=== PATIENT | male | born 1955 | race Caucasian/White ===

== ENCOUNTER 2022-05-15 11:57 | Day surgery (SDC) | payer MEDICARE, OTHER, SELFPAY ==
--- NOTE | 2022-05-14 08:34 | HO.ANESPROP2 ---
Documented by User: Liliana Adams NP 05/14/22 08:36 HPI - Anesthesia Eval Consult details Narrative: 67yo M for Colonoscopy [facility] Past Medical History Medical History (Updated 05/09/22 @ 09:30 by Nancy Nichole, JIA) Elevated cholesterol Elevated IOP GERD (gastroesophageal reflux disease) HTN (hypertension) Surgical History Surgical History (Updated 05/09/22 @ 09:31 by Nancy Nichole, JIA) History of shoulder surgery Hx of colonoscopy Hx of neck surgery Social History Social History Patient Tobacco Use Status: Never used Tobacco Are you DNR?: No Advance Directives: No Advance Directives Information Provided: Yes Meds Allergies Allergy/AdvReac Type Severity Reaction Status Date / Time Penicillins Allergy Unknown Verified 05/09/22 09:25 Home Medications Medication Instructions Recorded Confirmed Last Taken Type amlodipine 10 mg tablet 10 mg PO DAILY 05/09/22 05/09/22 Unknown History bimatoprost 0.01 % eye drops drp 05/09/22 Unknown History (Lumigan) brimonidine 0.1 % eye drops drp 05/09/22 Unknown History (Alphagan P) doxycycline hyclate 100 mg tablet mg 05/09/22 05/09/22 Unknown History ezetimibe 10 mg tablet 10 mg PO DAILY 05/09/22 05/09/22 Unknown History ibuprofen 200 mg tablet (Advil) mg 05/09/22 05/08/22 History irbesartan 300 mg tablet 300 mg PO DAILY 05/09/22 05/09/22 Unknown History omeprazole 20 mg tablet,delayed 20 mg PO DAILY 05/09/22 05/09/22 Unknown History release Exam Exam Date and Time: May 14, 2022 0834 Height,Weight and Vital Signs: Height 6 ft 2 in Weight 106.141 kg Assessment and Plan Assessment Anesthesia Assessment: Chart Reviewed Documented by User: Sadi Stephen MD 05/15/22 19:01 [facility] Past Medical History Medical History (Updated 05/09/22 @ 09:30 by Nancy Nichole RN) Elevated cholesterol Elevated IOP GERD (gastroesophageal reflux disease) HTN (hypertension) Functional capacity: independent ambulation Family History Family history of problems with anesthesia: No Surgical History Surgical History (Updated 05/09/22 @ 09:31 by Nancy Nichole RN) History of shoulder surgery Hx of colonoscopy Hx of neck surgery History of Problems with Anesthesia: No Social History Social History Patient Tobacco Use Status: Never used Tobacco Are you DNR?: No Advance Directives: No Advance Directives Information Provided: Yes Meds Allergies Allergy/AdvReac Type Severity Reaction Status Date / Time Penicillins Allergy Unknown Verified 05/09/22 09:25 Home Medications Medication Instructions Recorded Confirmed Last Taken Type amlodipine 10 mg tablet 10 mg PO DAILY 05/09/22 05/09/22 Unknown History bimatoprost 0.01 % eye drops drp 05/09/22 Unknown History (Lumigan) brimonidine 0.1 % eye drops drp 05/09/22 Unknown History (Alphagan P) doxycycline hyclate 100 mg tablet mg 05/09/22 05/09/22 Unknown History ezetimibe 10 mg tablet 10 mg PO DAILY 05/09/22 05/09/22 Unknown History ibuprofen 200 mg tablet (Advil) mg 05/09/22 05/08/22 History irbesartan 300 mg tablet 300 mg PO DAILY 05/09/22 05/09/22 Unknown History omeprazole 20 mg tablet,delayed 20 mg PO DAILY 05/09/22 05/09/22 Unknown History release Exam Airway Mallampati Class: IV Neck ROM: Full Loose/Missing/Broken Teeth: Yes Heart: S1,S2 Lungs: b/l breath sounds Assessment and Plan Assessment Anesthesia Assessment: Anesthesia Plan Discussed Final Anesthetic Review Family History of Problems with Anesthesia: No History of Problems with Anesthesia: No NPO: Yes ASA Class: II Final Preanesthetic Review: Meds/Allgs Chart Reviewed, Consent Obtained/Reviewed and Anes Risks/Benef Reviewed Patient Risk: Intermediate Procedure Risk: Intermediate Anesthetic Plan Anesthetic Plan: MAC: Disposition: Standard PACU
[2022-05-15 12:06] VITALS: BP 145/102; PULSE 88; RESP 18; TEMP 36.6; O2SAT 97
--- NOTE | 2022-05-15 13:06 | MHC.SHP ---
Pre-Procedural Eval Section A Date of Service: 05/15/22 The patient is an INPATIENT: No Changes since office visit: No Cold of Flu in the past 2 weeks, No New Medical Problems, No Changes in Medication and No Patient answered all questions The History & Physical has been completed within 30 days and I have reviewed it.: Yes Section B Chief Complaint: screening Allergies: Allergies Allergy/AdvReac Type Severity Reaction Status Date / Time Penicillins Allergy Unknown Verified 05/09/22 09:25 Plan I have reviewed the history and physical and performed a pertinent physical examination on my patient. No changes have occurred unless specified.
--- NOTE | 2022-05-15 13:45 | PM.OP ---
Brief Operative Note Date of Service: 05/15/22 Pre-op diagnosis: screening Post-op diagnosis: same Procedure: colonoscopy Surgeon: Arun Bradley Anesthesia: MAC Was an Learning And Development Specialist used for this Procedure?: No Estimated blood loss (mL): 0 Pathology: none sent Condition: stable Disposition: PACU
[2022-05-15 13:47] VITALS: BP 103/66; PULSE 72; RESP 16; TEMP 36.2; O2SAT 99
[2022-05-15 14:02] VITALS: BP 130/77; PULSE 74; RESP 18; TEMP 36.2; O2SAT 98
--- NOTE | 2022-05-16 01:41 | OP_ITS ---
SURGEON: Arun Bradley MD INDICATIONS: Colon cancer screening and prior history of adenomatous colon polyps. PREOPERATIVE DIAGNOSIS: POSTOPERATIVE DIAGNOSIS: PROCEDURE PERFORMED: ESTIMATED BLOOD LOSS: COMPLICATIONS: ANESTHESIA: ASSISTANTS: SPECIMENS: PROCEDURE: Colonoscopy to the terminal ileum. MEDICATIONS: Monitored anesthesia care. DESCRIPTION OF PROCEDURE: History and physical were performed. The risks and benefits of the procedure were explained to the patient. Informed consent was obtained. The patient was placed in the left lateral decubitus position. A digital rectal exam was performed and was found to be normal. The Olympus pediatric video colonoscope was introduced into the rectum and advanced to the cecum without difficulty. The cecum was identified by transillumination, palpation, and identification of ileocecal valve. Examination was performed. The scope was removed. He tolerated the procedure well. Returned to recovery area in stable condition. FINDINGS: The terminal ileum was examined and appeared normal. The visualized colonic mucosa was normal. The quality of the prep was good with some liquid stool coating the mucosa, which was easily washed. No polyps were identified. There was moderate sigmoid diverticulosis. Retroflexed examination was remarkable for small internal hemorrhoids. IMPRESSION: Normal screening colonoscopy. RECOMMENDATION: 1. Follow up as needed. 2. Repeat colonoscopy is recommended in 5 years for family history of colon polyps. MD JOVANNI Hurt/SANJAY / [id number] MTDD
== END 2022-05-15 14:49 | disposition home or self-care (01) ==
PROVIDERS: PCP Internal Medicine; Visit Provider Internal Medicine Gastroenterology
PROC: 0DJD8ZZ Inspection of Lower Intestinal Tract, Via Natural or Artificial Opening Endoscopic (ICD-10-PCS; CPT 45378; principal; 2022-05-15 13:00)
DX: Z12.11 Encounter for screening for malignant neoplasm of colon (principal); Z86.010 Personal history of colon polyps; Z83.71 Family history of colonic polyps; K57.30 Diverticulosis of large intestine without perforation or abscess without bleeding; K64.8 Other hemorrhoids; K21.9 Gastro-esophageal reflux disease without esophagitis; E78.00 Pure hypercholesterolemia, unspecified; I10 Essential (primary) hypertension; H40.059 Ocular hypertension, unspecified eye; Z79.1 Long term (current) use of non-steroidal anti-inflammatories (NSAID); Z79.899 Other long term (current) drug therapy; Z88.0 Allergy status to penicillin
CPT/HCPCS: G0105